=== PATIENT | female | born 1950 | race Caucasian/White ===

== ENCOUNTER 2023-07-30 23:13 | Emergency (ER) | payer OTHER, SELFPAY ==
[2023-07-30 23:32] VITALS: BP 182/78
--- NOTE | 2023-07-31 00:15 | ED.GENMED ---
History of Present Illness
General
Chief Complaint: Back Pain
Source: patient and spouse
Exam Limitations: none
Time Seen by Provider: 07/30/23 23:57
Nursing documentation reviewed up to this point in time: agreed with
Travel History
Have you had any contact with someone who has COVID-19?: No
Do you have any symptoms of coronavirus? Fever > 100 degrees, chills, cough, shortness of breath, sore throat, loss of taste or smell, muscle aches, or headache?: No
History of Present Illness
History of Present Illness:
73-year-old female past medical history of diverticulitis hypertension previous kidney stones spinal stenosis in the back presenting to the emergency department today with concerns of lower back pain with radiation to her legs and radiation to her
abdomen. No nausea vomiting no diarrhea no urinary does have some tingling into her legs denies overt numbness. No difficulty with urination or bowel movements. She has been taking Tylenol at home without relief.
Past History
Past History
ED Past Medical History: HTN, Hypercholesterolemia and Other (Rheumatoid arthritis, psoriasis)
ED Past Surgical History: Orthopedic
Social History
Tobacco: Non-smoker
Personal:
Living: with family
Review of Systems
Review of Systems
Allergies reviewed?: Yes
All Other Systems: ROS reviewed and negative except as documented in HPI and ROS
Phy Exam
Physical Exam
Physical Exam:
GENERAL: Alert , in no apparent distress
EYE: pupils equal and reactive
NECK: Supple, no significant adenopathy.
ENT: o/p clr, mmm.
CARDIAC: Regular rate and rhythm .
LUNGS: Clear breath sounds bilaterally, no acute respiratory distress, no wheezes/rales/rhonchi
ABDOMEN: Soft, without focal tenderness, no r/g, no cvat
NEUROLOGICAL: Alert and oriented, no focal neuro deficits
SKIN: Warm and dry, skin intact.
MUSCULOSKELETAL: No edema, well perfused.
PSYCH: Normal and appropriate interaction.
Course
Orders/Labs/Results
Orders:
Orders
07/31/23 00:15
CT Abd/pel Without Iv Or Oral Urgent
Comment:
Reason For Exam: flank pain b/l
Ketorolac [Toradol] 30 mg IV NOW STA
07/31/23 00:30
Complete Blood Count/With Diff Urgent
Comprehensive Metabolic Panel Urgent
07/31/23 01:51
Urinalysis Reflex To Culture Urgent
Date Specimen was Collected: 07/31/23
Time Specimen was Collected: 01:50
Urine Microscopic Reflex Cult Urgent
Urine Culture Urgent
GÓMEZ Source: U
Specimen Description:
Date Specimen was Collected: 07/31/23
Time Specimen was Collected: 01:50
Abnormal Lab Results
07/31/23 07/31/23
00:30 01:51
RBC 4.03 L 10^6/uL
(4.20-5.40)
Hct 35.8 L %
(37.0-47.0)
MCH 32.3 H pg
(27.0-31.0)
Absolute Neuts (auto) 8.4 H 10^3/uL
(1.4-6.5)
Absolute Lymphs (auto) 1.1 L 10^3/uL
(1.2-3.4)
Absolute Monos (auto) 0.7 H 10^3/uL
(0.1-0.6)
Neutrophils % 81.1 H %
(42.2-75.2)
Lymphocytes % 10.6 L %
(20.5-51.1)
Potassium 3.3 L mmol/L
(3.5-5.1)
BUN 24 H mg/dl
(7-17)
Glucose 142 H mg/dl
(70-99)
Calcium 10.6 H mg/dl
(8.4-10.2)
AST 38 H U/L
(14-36)
ALT 37 H U/L
(0-35)
Urine Ketones Trace A
(Negative)
Leukocyte Esterase Rfl 1+ A
(Negative)
Urine Bacteria (Reflex) Few A
(Negative)
07/31/23 00:30
07/31/23 00:30
Vital Signs
Initial and Last Documented VS:
Initial Vital Signs
Temp Pulse Resp BP Pulse Ox
99.0 F 87 22 182/78 99
07/30/23 23:32 07/30/23 23:32 07/30/23 23:32 07/30/23 23:32 07/30/23 23:32
Last Documented Vital Signs
Temp Pulse Resp BP Pulse Ox
99.0 F 77 24 136/70 98
07/30/23 23:32 07/31/23 01:28 07/31/23 01:28 07/31/23 01:28 07/31/23 01:28
MDM/Problems Addressed
MDM/Problems Addressed:
73-year-old female presenting to the emergency department today with concerns of low back discomfort radiating to the legs and abdomen over the past day and a half has been taking Tylenol without relief. No associated GI symptoms or urinary
symptoms. Labs without acute abnormalities other than elevated BUN to creatinine ratio slightly potassium of 3.3 calcium elevated to 10.6 CT scan obtained without acute abnormalities. Claims that symptoms are slightly better Toradol but claims
that she still had moderate symptoms. It was offered to her to treat with additional medications but she claims she would not like anything stronger. Patient clear that she would like to go home at this point she has symptoms when at home and she
would return for any worsening symptoms. He was advised to closely follow-up as an outpatient and strict return precautions were given.
*Critical Care Note
Total Time (30-74mins, 75-104mins- exclusive of procedures): Not Applicable
ED Attending Note
-
Portions of this chart may have been created with voice recognition software.� Occasional wrong word or��sound alike� substitutions may have occurred due to the inherent limitations of voice recognition software.
Discharge Plan
Departure
Patient Disposition: Home (Routine Discharge)
Date of Disposition: 07/31/23
Time of Disposition: 02:45
Patient with high blood pressure during this ER visit?: No
Condition: Good
Covid-19: Not Applicable
Discharge Problem:
Back pain
Instructions: Low Back Pain (DC)
Prescriptions:
New
cyclobenzaprine 10 mg tablet
10 mg PO BID PRN (Reason: muscle spasm) Qty: 7 0RF
No Action
enalapril maleate 20 mg Tablet
40 mg PO DAILY
amlodipine 5 mg Tablet
5 mg PO DAILY
methotrexate sodium 2.5 mg Tablet
7.5 mg PO QWEEK
folic acid 1 mg Tablet
1 mg PO DAILY
hydrochlorothiazide 25 mg Tablet
25 mg PO DAILY
lovastatin 20 mg Tablet
20 mg PO DAILY
Centrum Silver Ultra Women's Tablet
1 tab PO DAILY
Vitamin D3
PO DAILY
Referrals:
Alberto Dominguez MD [Active] - Follow up in 5-7 days
Seth Chaves MD [Family Provider] -
Activity Restrictions/Additional Instructions:
You came to the emergency department today with concerns of back pain with radiation. Here your CT scan did not show any emergent findings and labs without emergent findings as well. Please follow close with the primary care doctor and take the
prescribed medication. Return to the emergency department for any worsening, new or concerning symptoms. Additionally you can take Tylenol 500 mg every 4 hours or 1000 mg every 8 hours. You can also use heat and engage in light activity to help
with symptoms. You can also follow-up with the back doctor.
Interventions
Interventions:
*Risk Screen - Suicide Last Done: 07/31/23 00:35
*General Assessment Last Done: 07/31/23 01:28
*Neglect/Abuse Screening Last Done: 07/31/23 00:35
ED- Fall Risk Assessment Last Done: 07/31/23 00:35
ED-Musculoskeletal Assessment Last Done: 07/31/23 01:28
Discharge Date and Time
Print Language: MACANESE
[2023-07-31] MEDS: TORADOL 30 MG IV (00:28)
[2023-07-31 00:36] LABS: % Basophils 0.3 % (0-2); % Eosinophils 0.8 % (0-6); % Immature Granulocytes 0.4 % (0-0.5); % Lymphocytes 10.6 % (20.5-51.1); % Monocytes 6.8 % (1.7-9.3); % Neutrophils 81.1 % (42.2-75.2); Absolute Eosinophils 0.1 10^3/uL (0-0.7); Absolute Lymphocytes 1.1 10^3/uL (1.2-3.4); Absolute Monocytes 0.7 10^3/uL (0.1-0.6); Absolute Neutrophils 8.4 10^3/uL (1.4-6.5); Hematocrit 35.8 % (37.0-47.0); Mean Corp Hgb Conc. 36.3 g/dL (33.0-37.0); Mean Corpuscular Hgb 32.3 pg (27.0-31.0); Mean Corpuscular Volume 88.8 fL (81.0-99.0); Mean Platelet Volume 9.9 fL (7.4-10.4); Nucleated Red Blood Cells % 0 %; Platelet Count 242 10^3/uL (130-400); Red Blood Cell Count 4.03 10^6/uL (4.20-5.40); Red Cell Dist. Width 13.7 % (11.5-14.5); White Blood Cell Count 10.4 10^3/uL (4.8-10.8)
[2023-07-31 00:51] LABS: ALT (SGPT) 37 U/L (0-35); AST (SGOT) 38 U/L (14-36); Albumin 4.5 g/dl (3.5-5.0); Alkaline Phosphatase 83 U/L (38-126); Blood Urea Nitrogen 24 mg/dl (7-17); Calcium 10.6 mg/dl (8.4-10.2); Carbon Dioxide 24 mmol/L (22-30); Chloride 105 mmol/L (98-107); Glucose 142 mg/dl (70-99); Potassium 3.3 mmol/L (3.5-5.1); Sodium 139 mmol/L (135-145); Total Bilirubin 0.8 mg/dl (0.2-1.3); Total Protein 7.5 g/dl (6.3-8.2); eGFR 58.75
[2023-07-31 01:28] VITALS: BP 136/70
[2023-07-31 01:58] LABS: Urine Albumin Negative (Neg - Trace); Urine Bilirubin Negative (Negative); Urine Character Clear (Clear); Urine Color Yellow; Urine Glucose Negative (Negative); Urine Ketone Trace (Negative); Urine Leukocyte 1+ (Negative); Urine Nitrite Negative (Negative); Urine Occult Blood Negative (Negative); Urine Specific Gravity 1.015 (<1.030); Urine Urobilinogen Negative (Neg - 1+)
[2023-07-31 02:09] LABS: Urine Bacteria Few (Negative); Urine Red Blood Cell 0-2 /HPF (0-2)
== END 2023-07-31 02:30 | disposition home or self-care (01) ==
LOC: EMR 23:13
PROVIDERS: Physician Assistant; EMERGENCY PHYSICIAN Student in an Organized Health Care Education/Training Program; FAMILY PHYSICIAN Family Medicine
DX: M54.50 Low back pain, unspecified (principal); I10 Essential (primary) hypertension; E78.00 Pure hypercholesterolemia, unspecified; M06.9 Rheumatoid arthritis, unspecified; L40.9 Psoriasis, unspecified; Z87.442 Personal history of urinary calculi
CPT/HCPCS: 99284; 96374; 74176; 80053; 81003; 81015; 85025; 87086

== ENCOUNTER → 2023-08-24 09:37 | Outpatient (REF) | payer OTHER, SELFPAY | LOC: RAD 09:37 | PROVIDERS: ATTENDING PHYSICIAN Psychiatry & Neurology Neurology | DX: M46.1 Sacroiliitis, not elsewhere classified (principal) | CPT/HCPCS: 72220 ==